=== PATIENT | female | born 1975 | race Caucasian/White ===

== ENCOUNTER 2019-12-27 10:58 | Outpatient (REF) | payer OTHER, SELFPAY ==
--- NOTE | 2019-12-27 11:10 | MR_ITS ---
EXAMINATION: MR BREAST WITHOUT AND WITH CONTRAST, BILATERAL CLINICAL INFORMATION: Follow-up left breast nodular enhancement, central region. High-risk screening. COMPARISON: Breast MRI 01/11/2019, 11/27/2017 TECHNIQUE: Imaging was performed with a dedicated breast coil. Prior to the administration of contrast, bilateral axial T1 and bilateral axial T2 weighted sequences were obtained. After the uneventful administration of?7 mL of Gadavist, dynamic contrast-enhanced VIBRANT series through the breasts in the axial plane were performed. Subtracted images were performed and reviewed. A delayed sagittal sequence through both breasts was acquired. Additionally, CAD post-processing, including maximum intensity projections, 3-D reconstructions and kinetic analysis, were performed an independent workstation and reviewed by the interpreting radiologist is a portion of this exam. FINDINGS: The patient's fibroglandular tissue demonstrates moderate background enhancement. LEFT BREAST: The previously identified [id number] enhancement in the central region of the left breast is less conspicuous on today's examination. No suspicious masslike or non-masslike enhancement. No abnormal skin thickening or nipple retraction. No abnormal architectural distortion. Review of the T2 weighted images demonstrates no fibrocystic changes or dilated ducts. Review of kinetic images reveals no additional findings. RIGHT BREAST: There is a new area of irregular somewhat mass-like enhancement located at 8 o'clock, 7.4 cm from the nipple measuring 1.4 cm in size (image 81, series 105). This area demonstrates progressive or type I enhancement and appears asymmetric. No mammogram for comparison from 2020. Recommend formal diagnostic mammogram and ultrasound for further evaluation. No other definite suspicious ajl-[id number]-wewd or mass-like enhancement within the right breast within the limits of the examination. No additional findings on review of the T2-weighted images. There is no suspicious internal mammary chain or axillary adenopathy. Limited views of the chest and abdomen are unremarkable. MR/MR breast BI wo/w con IMPRESSION: 1. New indeterminant mass-like enhancement right breast, 8 o'clock. No MR specific evidence of left breast malignancy. ASSESSMENT: LEFT BREAST: BI-RADS 1-Negative RIGHT BREAST: BI-RADS 4 - Suspicious abnormality - Biopsy should be considered. RECOMMENDATIONS: Recommend bilateral diagnostic mammogram with right breast diagnostic ultrasound. This area cannot be identified for biopsy under either modality. MRI-guided biopsy will be required for a definitive evaluation. Recommendations called to Flores Liu Bath Mix Operator @ 110 pm on 12/29/2019.
== END 2019-12-27 10:59 | disposition home or self-care (01) ==
LOC: HO.MRI 10:58
PROVIDERS: PCP Internal Medicine; Visit Provider Surgery
DX: R92.8 Other abnormal and inconclusive findings on diagnostic imaging of breast (principal); Z91.89 Other specified personal risk factors, not elsewhere classified; Z80.3 Family history of malignant neoplasm of breast
CPT/HCPCS: 77049; A9585

== ENCOUNTER 2020-01-12 10:50 | Outpatient (REF) | payer OTHER, SELFPAY ==
--- NOTE | 2020-01-12 10:58 | MM_ITS ---
EXAMINATION: MM DIAGNOSTIC DIGITAL BREAST TOMOSYNTHESIS, BILATERAL US DIAGNOSTIC ULTRASOUND BREAST, RIGHT CLINICAL INFORMATION: High risk screening MRI demonstrates new indeterminate masslike enhancement posterior lateral right breast. History reduction mammoplasty March 2018. The lifetime risk of breast cancer based on the Tyrer-Cuzick Model is 26%. COMPARISON: MRI breasts 12/27/2019, 01/11/2019, 11/27/2017; Mammography: 02/11/2019, 10/15/2017, 09/30/2016, 02/11/2019 TECHNIQUE: Digital breast tomosynthesis is performed in both the craniocaudal and mediolateral oblique views along with computer-aided detection (CAD). Synthesized 2D images are generated from the tomosynthesis. Additional exaggerated right CC view is provided. Ultrasound right breast is targeted to the outer quadrants. Grayscale imaging and color Doppler are performed without and with harmonics. FINDINGS: There are scattered areas of fibroglandular density (ACR BI-RADS breast composition Category b). Parenchymal pattern is similar to prior studies. There is no developing density or interval mass or architectural abnormality. No abnormal calcifications. There is biopsy clip marker again noted posterior upper outer left breast. There is no mammographic correlate for the finding on recent breast MRI. Ultrasound right breast demonstrates no cystic or solid mass, architectural abnormality or focal duct ectasia. There is no ultrasound correlate for finding on recent breast MRI. Results are discussed with the patient at time of visit. There is no imaging correlate for finding on recent breast MRI. MR guided biopsy would be necessary for tissue sampling. The Patient notes she has upcoming appointment with Dr. Tapia and will discuss management options. Results called to medical records specialist (Flores) for Dr. Tapia on 01/12/2020. MM/MM tomosynthesis diagnostic BI IMPRESSION: 1. No mammographic evidence of malignancy. 2. Unremarkable targeted right breast ultrasound. 3. No mammographic or ultrasound correlate for finding on recent breast MRI. ASSESSMENT: BI-RADS 4: Suspicious (see recent MR breast) RECOMMENDATION: 1. The suspicious finding right breast on recent MR has no mammographic or ultrasound correlate. Tissue sampling would therefore require MR-guidance. 2. Otherwise, routine annual mammography screening and adjunct screening with MR. This patient's information was entered into a reminder system with a target due date for their next mammogram.
== END 2020-01-12 10:51 | disposition home or self-care (01) ==
LOC: HO.MAMMO 10:50
PROVIDERS: PCP Internal Medicine; Visit Provider Surgery
DX: R92.8 Other abnormal and inconclusive findings on diagnostic imaging of breast (principal); Z80.3 Family history of malignant neoplasm of breast
CPT/HCPCS: 76642; 77062; 77066

== ENCOUNTER → 2020-01-18 11:01 | Outpatient (BNVA) | payer OTHER, SELFPAY | PROVIDERS: PCP Internal Medicine; Visit Provider Surgery | DX: R92.8 Other abnormal and inconclusive findings on diagnostic imaging of breast (principal); Z80.3 Family history of malignant neoplasm of breast | CPT/HCPCS: 99212 ==

== ENCOUNTER 2020-02-01 09:01 | Outpatient (REF) | payer OTHER, SELFPAY ==
--- NOTE | 2020-02-01 09:06 | MR_ITS ---
EXAMINATION: MR GUIDED TARGETING BREAST, RIGHT CLINICAL INFORMATION: High risk screening MRI demonstrates new indeterminate masslike enhancement posterior lateral right breast. No mammographic or ultrasound correlate. History reduction mammoplasty March 2018. COMPARISON: MRI breasts without and with contrast 12/27/2019, diagnostic digital breast tomosynthesis and targeted right breast ultrasound 01/12/2020. TECHNIQUE/PROCEDURE: Informed consent was obtained from the patient after discussion of the benefits, risks, and alternatives to biopsy today. Patient appeared to understand. Gave opportunity for questions. Patient signed consent form. IV placed and MR imaging is performed with patient in 3 positions: prone, oblique, and steeper oblique. The intended target remains too far posterior from the grid position to allow for sampling. The procedure was aborted. Patient did not receive gadolinium contrast. No biopsy performed. Results discussed with patient and called to medical assisting program director (Kizzy) for Dr. Tapia on 02/01/2020. Tissue sample under MR guidance may be possible at an outside facility that has a different breast grid coil arrangement. If tissue sampling is not performed, then follow up MR breasts in 6-12 months would be recommended. MR/MR guided breast biopsy RT IMPRESSION: 1. Procedure aborted as the target is not accessible with MR coil-grid arrangement. 2. Tissue sample under MR guidance may be possible at an outside facility with a different breast grid coil arrangement. If tissue sampling is not performed, then follow up MR breasts in 6-12 months would be recommended.
== END 2020-02-01 09:02 | disposition home or self-care (01) ==
LOC: HO.MRI 09:01
PROVIDERS: Visit Provider Surgery
DX: R92.8 Other abnormal and inconclusive findings on diagnostic imaging of breast (principal); Z80.3 Family history of malignant neoplasm of breast
CPT/HCPCS: 19085; A9585

== ENCOUNTER → 2020-04-21 09:47 | Outpatient (BNVA) | payer OTHER, SELFPAY | PROVIDERS: PCP Internal Medicine; Visit Provider Surgery | DX: R92.8 Other abnormal and inconclusive findings on diagnostic imaging of breast (principal); Z80.3 Family history of malignant neoplasm of breast | CPT/HCPCS: 99212 ==

== ENCOUNTER → 2020-08-25 09:36 | Outpatient (BNVA) | payer OTHER, SELFPAY | PROVIDERS: PCP Internal Medicine; Referring Provider Internal Medicine; Visit Provider Surgery | DX: Z80.3 Family history of malignant neoplasm of breast (principal) | CPT/HCPCS: 99212 ==

== ENCOUNTER 2021-01-02 08:32 | Outpatient (REF) | payer OTHER, SELFPAY ==
--- NOTE | ~2021-01-02 | MM_ITS ---
EXAMINATION: MM DIAGNOSTIC DIGITAL BREAST TOMOSYNTHESIS, BILATERAL CLINICAL INFORMATION: Due for yearly. History reduction mammoplasty March 2018. History benign left breast biopsy 2015. Anticipated MR biopsy right breast 02/01/2020 not performed due to location of target beyond sampling grid. Patient notes unremarkable follow up MRI at outside facility performed on 08/09/2020. The lifetime risk of breast cancer based on the Tyrer-Cuzick Model is 20%. COMPARISON: Mammography: 01/12/2020, 02/11/2019, 10/15/2017; MRI breasts 12/27/2019, MR guided targeting breast 02/01/2020, outside breast MRI report is [id number] ([facility]). TECHNIQUE: Digital breast tomosynthesis is performed in both the craniocaudal and mediolateral oblique views along with computer-aided detection (CAD). Synthesized 2D images are generated from the tomosynthesis. Additional views are obtained: Exaggerated right CC, magnification right CC, magnification right ML x2. FINDINGS: There are scattered areas of fibroglandular density (ACR BI-RADS breast composition Category b). There is no developing density or interval mass or architectural abnormality. Parenchymal pattern is similar to prior study. There is biopsy clip marker again noted posterior upper left breast. There are some benign calcifications anterior right breast consistent with the reduction mammoplasty. The axilla and skin contours are unremarkable. Results are discussed with the patient at time of visit. MM/MM tomosynthesis diagnostic BI IMPRESSION: No mammographic evidence of malignancy. ASSESSMENT: BI-RADS 2: Benign RECOMMENDATION: 1. Routine annual mammography screening. 2. Additional adjunct screening breast MRI as clinical risk factors warrant. This patient's information was entered into a reminder system with a target due date for their next mammogram.
== END 2021-01-02 08:33 | disposition home or self-care (01) ==
LOC: HO.MAMMO 08:32
PROVIDERS: Visit Provider Internal Medicine
DX: R92.2 Inconclusive mammogram (principal); Z80.3 Family history of malignant neoplasm of breast
CPT/HCPCS: 77062; 77066

== ENCOUNTER → 2021-02-22 09:44 | Outpatient (BNVA) | payer OTHER, SELFPAY | PROVIDERS: PCP Internal Medicine; Referring Provider Internal Medicine; Visit Provider Surgery | DX: R92.8 Other abnormal and inconclusive findings on diagnostic imaging of breast (principal); Z80.3 Family history of malignant neoplasm of breast | CPT/HCPCS: 99212 ==

== ENCOUNTER → 2021-08-23 09:44 | Outpatient (BNVA) | payer OTHER, SELFPAY | PROVIDERS: PCP Internal Medicine; Visit Provider Surgery | DX: R92.8 Other abnormal and inconclusive findings on diagnostic imaging of breast (principal); Z80.3 Family history of malignant neoplasm of breast | CPT/HCPCS: 99212 ==

== ENCOUNTER 2022-01-07 09:36 | Outpatient (REF) | payer OTHER, SELFPAY ==
--- NOTE | ~2022-01-07 | MM_ITS ---
EXAMINATION: MM SCREENING DIGITAL BREAST TOMOSYNTHESIS, BILATERAL CLINICAL INFORMATION: Screening. Asymptomatic. The lifetime risk of breast cancer based on the Tyrer-Cuzick Model is 20%. COMPARISON: Mammography: 01/02/2021, 01/12/2020, 02/11/2019 TECHNIQUE: Digital breast tomosynthesis is performed in both the craniocaudal and mediolateral oblique views along with computer-aided detection (CAD). Synthesized 2D images are generated from the tomosynthesis. Additional left MLO and right cleavage view are provided. FINDINGS: There are scattered areas of fibroglandular density (ACR BI-RADS breast composition Category b). There are no significant masses, abnormal calcifications, or other abnormalities. Parenchymal pattern is similar to prior studies. There is no developing density or architectural abnormality. Biopsy clip marker again noted posterior upper left breast. The axilla are unremarkable. No significant changes. MM/MM tomosynthesis screening BI IMPRESSION: No mammographic evidence of malignancy. ASSESSMENT: BI-RADS 1: Negative RECOMMENDATION: Routine annual mammography screening. This patient's information was entered into a reminder system with a target due date for their next mammogram.
== END 2022-01-07 09:37 | disposition home or self-care (01) ==
LOC: HO.MAMMO 09:36
PROVIDERS: PCP Internal Medicine; Visit Provider Internal Medicine
DX: Z12.31 Encounter for screening mammogram for malignant neoplasm of breast (principal)
CPT/HCPCS: 77063; 77067

== ENCOUNTER → 2022-02-26 08:41 | Outpatient (BNVA) | payer OTHER, SELFPAY | PROVIDERS: PCP Internal Medicine; Referring Provider Internal Medicine; Visit Provider Surgery | DX: R92.8 Other abnormal and inconclusive findings on diagnostic imaging of breast (principal); Z91.89 Other specified personal risk factors, not elsewhere classified; Z80.3 Family history of malignant neoplasm of breast | CPT/HCPCS: 99212 ==

== ENCOUNTER 2022-09-13 10:04 | Outpatient (AMB) | payer OTHER, SELFPAY ==
--- NOTE | 2022-09-13 10:07 | A.OFFVIS_ITS ---
Intake Vital Signs 09/13/22 10:13 Height 5 ft 8 in Weight 145 lb 6 oz BMI 22.1 BP 128/78 Blood Pressure Location Lt brachial Position Sitting Pulse 86 Intake Visit Reasons: 6 mth breast exam and MRI results Intake Note: Patient is seen in office for 6 month follow up visit, breast exam and MRI results. 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 Kearns and Dr. Tapia returning for a high risk breast cancer examination. She has a strong family history of breast cancer including her maternal grandmother diagnosed at the age of 63, a maternal great grandmother with breast cancer as well as 2 maternal aunts with breast cancer at the age of 60. Her mother was tested for BRCA and was negative. Patient's initial Tyrer-Cuzick calculation was 25% lifetime risk of breast cancer. 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 She also underwent bilateral breast reduction by Dr. Nina Mandujano March 2018. This was complicated by hy pertrophic scarring in the right breast which has subsequently resolved. The patient underwent a breast MRI on 12/27/2019 which demonstrated a new area of irregular masslike enhancement along the 8 o'clock position, 7.4 cm from the nipple, 1.4 cm in size. Attempted biopsy was performed on 02/01/2020 however was unsuccessful as the target was not accessible with the MR coil great arrangement. A six-month follow-up MRI was obtained on 08/09/2020 at [facility]. This revealed no further suspicious findings in either breast (BI-RADS 2 bilaterally). Her most recent mammogram of 01/07/2022 reveals no suspicious findings in either breast (BI-RADS 2). Tyrer-Cuzick lifetime remaining risk of breast cancer is 20%. Her most recent MRI of 09/06/2022 revealed no MR specific suspicious findings (BI-RADS 2). She feels well and denies any new breast symptoms. [facility] [place] Medical History Family history of breast cancer Surgical History History of bilateral breast reduction surgery (03/30/18) History of cervical polypectomy History of hemorrhoidectomy History of left breast biopsy (09/2015) Family History Mother History of multiple myeloma History of colon polyps Paternal Grandfather History of stomach cancer Maternal Grandmother History of breast cancer, Onset Age: 55 Maternal Aunt History of breast cancer, Onset Age: 60 Social History Alcohol intake: current Alcohol intake frequency: holidays/special occasions only Review of Systems Const All systems reviewed & are unremarkable except as noted in HPI and below Denies nipple discharge Skin/Breast Denies breast swelling, Denies breast skin changes, Reports breast pain, Denies breast mass, Denies change in breast shape and Denies nipple discharge Jorge/Lymph Denies lymphadenopathy Physical Exam Const General: cooperative, healthy appearing, comfortable, no acute distress, well developed, alert and awake Chest Other: Bilateral breast reduction surgery with typical keyhole incision. Left breast: No skin change, no nipple retraction, no nipple discharge, no palpable mass, no enlarged lymph nodes. Right breast: No skin change, no nipple retraction, no nipple discharge, no palpable mass, no enlarged lymph nodes Resp Effort & Inspection: normal respiratory effort Skin General skin exam: no rashes or lesions noted Extrem General: Yes no clubbing, cyanosis or edema Assessment & Plan Assessment & Plan (1) At high risk for breast cancer: Code(s): Z91.89 - Other specified personal risk factors, not elsewhere classified (2) Family history of breast cancer: Comment: Examination findings are benign and stable except for the presence of mild tenderness in the lower outer quadrant of the right breast Code(s): Z80.3 - Family history of malignant neoplasm of breast (3) Abnormal MRI, breast: Code(s): R92.8 - Other abnormal and inconclusive findings on diagnostic imaging of breast Plan 47-year-old female patient returning for a six-month follow-up breast examinat ion. Examination today reveals no suspicious findings in either breast. She underwent breast MRI on 09/06/2022 which revealed no MR specific suspicious findings in either breast (BI-RADS 2). Her most recent mammogram of 01/07/2022 reveals no suspicious findings and no mammographic evidence of malignancy. (BI- RADS 2: Benign). She will be due for her next mammogram in 01/11/2023. I recommended follow-up examination in 6 months. She is welcome to call sooner for any new concerns. Coding Level of Care Code Est Pt Level 3 (95879) Diagnoses At high risk for breast cancer Z91.89 Family history of breast cancer Z80.3 Abnormal MRI, breast R92.8
[2022-09-13 10:13] VITALS: BP 128/78; PULSE 86; BMI 22.1
== END 2022-09-13 10:26 | disposition home or self-care (01) ==
PROVIDERS: PCP Internal Medicine; Visit Provider Surgery
DX: Z91.89 Other specified personal risk factors, not elsewhere classified (principal); Z80.3 Family history of malignant neoplasm of breast; R92.8 Other abnormal and inconclusive findings on diagnostic imaging of breast
CPT/HCPCS: 99213

== ENCOUNTER → 2022-09-13 10:04 | Outpatient (BNVA) | payer OTHER, SELFPAY | PROVIDERS: PCP Internal Medicine; Visit Provider Surgery | DX: R92.8 Other abnormal and inconclusive findings on diagnostic imaging of breast (principal); D24.9 Benign neoplasm of unspecified breast; Z91.89 Other specified personal risk factors, not elsewhere classified; Z80.3 Family history of malignant neoplasm of breast; Z42.8 Encounter for other plastic and reconstructive surgery following medical procedure or healed injury | CPT/HCPCS: 99212 ==

== ENCOUNTER 2023-01-08 09:54 | Outpatient (REF) | payer OTHER, SELFPAY ==
--- NOTE | ~2023-01-08 | MM_ITS ---
EXAMINATION: MM SCREENING DIGITAL BREAST TOMOSYNTHESIS, BILATERAL CLINICAL INFORMATION: Screening. Asymptomatic. The patient is status post bilateral breast reduction. COMPARISON: Mammography: This study is compared with prior exams dating back to 2018. TECHNIQUE: Digital breast tomosynthesis is performed in both the craniocaudal and mediolateral oblique views along with computer-aided detection (CAD). Synthesized 2D images are generated from the tomosynthesis. FINDINGS: There are scattered areas of fibroglandular density (ACR BI-RADS breast composition Category b). There are no significant masses, abnormal calcifications, or other abnormalities. There is a biopsy tissue marker present in the superior aspect of the left breast. MM/MM tomosynthesis screening BI IMPRESSION: No mammographic evidence of malignancy. ASSESSMENT: BI-RADS BI-RADS 2 - Benign Findings RECOMMENDATION: Routine annual mammography screening. 1 year F/U This examination should not preclude the clinical evaluation of a suspicious palpable abnormality. This patient's information was entered into a reminder system with a target due date for their next mammogram.
== END 2023-01-08 09:55 | disposition home or self-care (01) ==
LOC: HO.MAMMO 09:54
PROVIDERS: PCP Internal Medicine; Visit Provider Internal Medicine
DX: Z12.31 Encounter for screening mammogram for malignant neoplasm of breast (principal)
CPT/HCPCS: 77063; 77067

== ENCOUNTER → 2023-01-08 10:15 | Outpatient (BNV) | payer OTHER, SELFPAY | PROVIDERS: PCP Internal Medicine; Visit Provider Radiology Diagnostic Radiology | DX: Z12.31 Encounter for screening mammogram for malignant neoplasm of breast (principal) | CPT/HCPCS: 77063; 77067 ==

== ENCOUNTER 2023-03-18 08:50 | Outpatient (AMB) | payer OTHER, SELFPAY ==
--- NOTE | 2023-03-18 08:52 | A.OFFVIS_ITS ---
Intake Vital Signs 03/18/23 09:04 Height 5 ft 8 in Weight 146 lb 4 oz BMI 22.2 BP 116/64 Blood Pressure Location Lt brachial Position Sitting Pulse 86 Pulse Source Pulse Oximeter Intake Visit Reasons: 6 mth breast exam Intake Note: Patient is seen in office for 6 month follow up visit, breast exam. 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 Accompanied by: Self / Same As Patient Allergies amlodipine [Norvasc] Allergy (Unknown, Verified 03/18/23 09:03) nausea and vomiting moxifloxacin [Avelox] Allergy (Unknown, Verified 03/18/23 09:03) shortness of breath Sulfa (Sulfonamide Antibiotics) Allergy (Unknown, Verified 03/18/23 09:03) hives Medication List - Last Reconciled 03/18/23 by Manuel Leach MD fluoride (sodium) 1.1% dental DIRECTED mometasone 50 mcg/actuation 2 sprays intranasal DAILY rimegepant (Nurtec ODT) 75 mg PO Q OTHER DAY HPI HPI Comments History of Present Illness Details 47-year-old female patient, former patie nt of Dr. Kearns and Dr. Tapia returning for a high risk breast cancer examination. She has a strong family history of breast cancer including her maternal grandmother diagnosed at the age of 63, a maternal great grandmother with breast cancer as well as 2 mate rnal aunts with breast cancer at the age of 60. Her mother was tested for BRCA and was negative. Patient's initial Tyrer-Cuzick calculation was 25% lifetime risk of breast cancer. 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 She also underwent bilateral breast reduction by Dr. Nina Mandujano March 2018. This was complicated by hypertrophic scarring in the right breast which has subsequently resolved. The patient underwent a breast MRI on 12/27/2019 which demonstrated a new area of irregular masslike enhancement along the 8 o'clock position, 7.4 cm from the nipple, 1.4 cm in size. Attempted biopsy was performed on 02/01/2020 however was unsuccessful as the target was not accessible with the MR coil great arrangement. A six-month follow-up MRI was obtained on 08/09/2020 at [facility]. This revealed no further suspicious findings in either breast (BI-RADS 2 bilaterally). Her most recent mammogram of 01/08/2023 revealed no mammograph ic evidence of malignancy (BI-RADS 2). Her most recent MRI of 09/06/2022 revealed no MR specific suspicious findings (BI-RADS 2). She feels well and denies any new breast symptoms. [facility] Medical History Family history of breast cancer Surgical History History of bilateral breast reduction surgery (03/30/18) History of left breast biopsy (09/2015) History of cervical polypectomy History of hemorrhoidectomy Family History Mother History of multiple myeloma History of colon polyps Paternal Grandfather History of stomach cancer Maternal Grandmother History of breast cancer, Onset Age: 55 Maternal Aunt History of breast cancer, Onset Age: 60 Social History Alcohol intake: current Alcohol intake frequency: holidays/special occasions only Review of Systems Const All systems reviewed & are unremarkable except as noted in HPI and below Denies nipple discharge Skin/Breast Denies breast swelling, Denies breast skin changes, Reports breast pain, Denies breast mass, Denies change in breast shape and Denies nipple discharge Jorge/Lymph Denies lymphadenopathy Physical Exam Vital Signs: Last Vital Signs Pulse 86 03/18/23 09:04 BP 116/64 03/18/23 09:04 BMI result Body Mass Index 22.2 Const General: no acute distress Nutritional Appearance: well nourished Orientation/consciousness: patient oriented x3 Limitations: no limitations Chest Other: Bilateral breast reduction surgery with typical keyhole incision. Left breast: No skin change, no nipple retraction, no nipple discharge, no palpable mass, no enlarged lymph nodes. Right breast: No skin change, no nipple retraction, no nipple discharge, no palpable mass, no enlarged lymph nodes Resp Effort & Inspection: normal respiratory effort Skin General skin exam: no rashes or lesions noted Neuro General: patient oriented x3 Extrem General: Yes no clubbing, cyanosis or edema Assessment & Plan Assessment & Plan (1) At high risk for breast cancer: Code(s): Z91.89 - Other specified personal risk factors, not elsewhere classified (2) Family history of breast cancer: Comment: Examination findings are benign and stable except for the presence of mild tenderness in the lower outer quadrant of the right breast Code(s): Z80.3 - Family history of malignant neoplasm of breast (3) Abnormal MRI, breast: Code(s): R92.8 - Other abnormal and inconclusive findings on diagnostic imaging of breast Plan 47-year-old female patient returning for a six-month follow-up breast examination. Examination today reveals no suspicious findings in either breast. She underwent breast MRI on 09/06/2022 which revealed no MR specific suspicious findings in either breast (BI-RADS 2). Her most recent mammogram of 01/08/2023 reveals no suspicious findings and no mammographic evidence of malignancy (BI- RADS 2: Benign). Follow-up mammogram in 1 year is recommended. I recommended follow-up examination in 6 months. She is welcome to call sooner for any new concerns. Coding Level of Care Code Est Pt Level 3 (43108) Diagnoses At high risk for breast cancer Z91.89 Family history of breast cancer Z80.3 Abnormal MRI, breast R92.8
[2023-03-18 09:04] VITALS: BP 116/64; PULSE 86; BMI 22.2
== END 2023-03-18 09:13 | disposition home or self-care (01) ==
PROVIDERS: PCP Internal Medicine; Visit Provider Surgery
DX: R92.8 Other abnormal and inconclusive findings on diagnostic imaging of breast (principal); Z80.3 Family history of malignant neoplasm of breast; Z91.89 Other specified personal risk factors, not elsewhere classified
CPT/HCPCS: 99213

== ENCOUNTER → 2023-03-18 08:50 | Outpatient (BNVA) | payer OTHER, SELFPAY | PROVIDERS: PCP Internal Medicine; Visit Provider Surgery | DX: R92.8 Other abnormal and inconclusive findings on diagnostic imaging of breast (principal); Z91.89 Other specified personal risk factors, not elsewhere classified; Z80.3 Family history of malignant neoplasm of breast | CPT/HCPCS: 99212 ==

== ENCOUNTER 2023-09-16 09:20 | Outpatient (AMB) | payer OTHER, SELFPAY ==
--- NOTE | 2023-09-16 09:39 | A.OFFVIS_ITS ---
Vital Signs 09/16/23 09:40 Height 5 ft 8 in Weight 149 lb 14.629 oz BMI 22.8 BP 120/60 Blood Pressure Location Lt brachial Position Sitting Pulse 81 Intake Visit Reasons: 6 mth breast exam Intake Note: Marlene presents in the office as a 6 month breast exam. CC: She states that last week she had an MRI at [place] of her breast. Allergies amlodipine [Norvasc] Allergy (Unknown, Verified 09/16/23 09:42) nausea and vomiting moxifloxacin [Avelox] Allergy (Unknown, Verified 09/16/23 09:42) shortness of breath Sulfa (Sulfonamide Antibiotics) Allergy (Unknown, Verified 09/16/23 09:42) hives Medication List - Last Reconciled 09/16/23 by Manuel Leach MD fluoride (sodium) 1.1% dental DIRECTED mometasone 50 mcg/actuation 2 sprays intranasal DAILY omeprazole 20 mg PO DAILY rimegepant (Nurtec ODT) 75 mg PO Q OTHER DAY HPI Comments Details: 48-year-old female patient, former patient of Dr. Kearns and Dr. Tapia returning for a high risk breast cancer examination. She has a strong family history of breast cancer including her maternal grandmother diagnosed at the age of 63, a maternal great grandmother with breast cancer as well as 2 maternal aunts with breast cancer at the age of 60. Her mother was tested for BRCA and was negative. Patient's initial Tyrer-Cuzick calculation was 25% lifetime risk of breast cancer. 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 She also underwent bilateral breast reduction by Dr. Nina Mandujano March 2018. This was complicated by hypertrophic scarring in the right breast which has subsequently resolved. The patient underwent a breast MRI on 12/27/2019 which demonstrated a new area of irregular masslike enhancement along the 8 o'clock position, 7.4 cm from the nipple, 1.4 cm in size. Attempted biopsy was performed on 02/01/2020 however was unsuccessful as the target was not accessible with the MR coil great arrangement. A six-month follow-up MRI was obtained on 08/09/2020 at [facility] revealed no further suspicious findings in either breast (BI-RADS 2 bilaterally). Her most recent mammogram of 01/08/2023 revealed no mammographic evidence of malignancy (BI-RADS 2). Her most recent MRI of 09/09/2023 revealed no MR specific suspicious findings (BI-RADS 1). She feels well and denies any new breast symptoms. [facility] Medical History Family history of breast cancer Surgical History History of hysterectomy History of bilateral breast reduction surgery (03/30/18) History of left breast biopsy (09/2015) History of cervical polypectomy History of hemorrhoidectomy Family History Mother History of multiple myeloma History of colon polyps Paternal Grandfather History of stomach cancer Maternal Grandmother History of breast cancer, Onset Age: 55 Maternal Aunt History of breast cancer, Onset Age: 60 Social History Alcohol intake: current Alcohol intake frequency: holidays/special occasions only Review of Systems Const All systems reviewed & are unremarkable except as noted in HPI and below Physical Exam Vital Signs: Last Vital Signs Pulse 81 09/16/23 09:40 BP 120/60 09/16/23 09:40 BMI result Body Mass Index 22.8 Const General: no acute distress Nutritional Appearance: well nourished Orientation/consciousness: patient oriented x3 Limitations: no limitations Chest Other: Bilateral breast reduction surgery with typical keyhole incision. Left breast: No skin change, no nipple retraction, no nipple discharge, no palpable mass, no enlarged lymph nodes. Right breast: No skin change, no nipple retraction, no nipple discharge, no palpable mass, no enlarged lymph nodes Resp Effort & Inspection: normal respiratory effort Skin General skin exam: no rashes or lesions noted Neuro General: patient oriented x3 Extrem General: Yes no clubbing, cyanosis or edema Assessment & Plan Assessment & Plan (1) At high risk for breast cancer: Code(s): Z91.89 - Other specified personal risk factors, not elsewhere classified Category: Medical (2) Family history of breast cancer: Comment: Examination findings are benign and stable except for the presence of mild tenderness in the lower outer quadrant of the right breast Code(s): Z80.3 - Family history of malignant neoplasm of breast Category: Medical (3) Abnormal MRI, breast: Code(s): R92.8 - Other abnormal and inconclusive findings on diagnostic imaging of breast Category: Medical Plan 48-year-old female patient returning for a six-month follow-up breast examination. Examination today reveals no suspicious findings in either breast. She will continue with her annual mammogram alternating with annual breast MRI. Her most recent MRI performed on 08/13/2023 revealed no MR specific evidence of malignancy in either breast (BI-RADS 1). She is scheduled for a mammogram on 01/14/2024. I recommended follow-up examination in 6 months, sooner p.r.n.. Coding Level of Care Code Est Pt Level 3 (86355) Diagnoses At high risk for breast cancer Z91.89 Family history of breast cancer Z80.3 Abnormal MRI, breast R92.8
[2023-09-16 09:40] VITALS: BP 120/60; PULSE 81; BMI 22.8
== END 2023-09-16 10:02 | disposition home or self-care (01) ==
PROVIDERS: PCP Internal Medicine; Visit Provider Surgery
DX: R92.8 Other abnormal and inconclusive findings on diagnostic imaging of breast (principal); Z80.3 Family history of malignant neoplasm of breast; Z91.89 Other specified personal risk factors, not elsewhere classified
CPT/HCPCS: 99213

== ENCOUNTER → 2023-09-16 09:20 | Outpatient (BNVA) | payer OTHER, SELFPAY | PROVIDERS: PCP Internal Medicine; Visit Provider Surgery | DX: R92.8 Other abnormal and inconclusive findings on diagnostic imaging of breast (principal); Z91.89 Other specified personal risk factors, not elsewhere classified; Z80.3 Family history of malignant neoplasm of breast | CPT/HCPCS: 99212 ==

== ENCOUNTER 2024-01-14 09:56 | Outpatient (REF) | payer OTHER, SELFPAY ==
--- NOTE | ~2024-01-14 | MM_ITS ---
EXAMINATION: MM SCREENING DIGITAL BREAST TOMOSYNTHESIS, BILATERAL CLINICAL INFORMATION: Screening. Asymptomatic. COMPARISON: Mammography: Comparison is made with available priors TECHNIQUE: Digital breast mammography with tomosynthesis is performed in both the craniocaudal and mediolateral oblique views along with computer-aided detection (CAD). FINDINGS: There are scattered areas of fibroglandular density (ACR BI-RADS breast composition Category b). Left breast marker clip. There are no significant masses, abnormal calcifications, or other abnormalities. MM/MM tomosynthesis screening BI IMPRESSION: No mammographic evidence of malignancy. ASSESSMENT: BI-RADS BI-RADS 2 - Benign Findings RECOMMENDATION: Routine annual mammography screening. 1 year F/U This examination should not preclude the clinical evaluation of a suspicious palpable abnormality. This patient's information was entered into a reminder system with a target due date for their next mammogram. Electronically signed by: Rosi Peace DO 01/23/2024 09:26 AM NABILA
== END 2024-01-14 09:57 | disposition home or self-care (01) ==
LOC: HO.MAMMO 09:56
PROVIDERS: PCP Internal Medicine; Visit Provider Internal Medicine
DX: Z12.31 Encounter for screening mammogram for malignant neoplasm of breast (principal)
CPT/HCPCS: 77063; 77067

== ENCOUNTER → 2024-01-14 10:15 | Outpatient (BNV) | payer OTHER, SELFPAY | PROVIDERS: PCP Internal Medicine; Visit Provider Internal Medicine | DX: Z12.31 Encounter for screening mammogram for malignant neoplasm of breast (principal) | CPT/HCPCS: 77063; 77067 ==

== ENCOUNTER 2024-04-16 10:26 | Outpatient (AMB) | payer OTHER, SELFPAY ==
--- NOTE | 2024-04-16 10:29 | A.OFFVIS_ITS ---
Vital Signs 04/16/24 10:34 Height 5 ft 8 in Weight 147 lb BMI 22.3 BP 147/79 H Blood Pressure Location Rt brachial Position Sitting Pulse 84 Intake Visit Reasons: 6 month breast exam Intake Note: Patient is seen in office for 6 month follow up, breast exam. Pt c/o: no concerns. Reports no changes in medical hx since nelsy. mm:01/14/24 MRI:09/09/23 Quality Lab Technician Required: No Accompanied by: Self / Same As Patient Allergies amlodipine [Norvasc] Allergy (Unknown, Verified 04/16/24 10:33) nausea and vomiting moxifloxacin [Avelox] Allergy (Unknown, Verified 04/16/24 10:33) shortness of breath Sulfa (Sulfonamide Antibiotics) Allergy (Unknown, Verified 04/16/24 10:33) hives HPI Comments Details: 49-year-old female patient, former patient of Dr. Kearns and Dr. Tapia returning for a high risk breast cancer examination. She has a strong family history of breast cancer including her maternal grandmother diagnosed at the age of 63, a maternal great grandmother with breast cancer as well as 2 maternal aunts with breast cancer at the age of 60. Her mother was tested for BRCA and was negative. Patient's initial Tyrer-Cuzick calculation was 25% lifetime risk of breast cancer. 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 She also underwent bilateral breast reduction by Dr. Nina Mandujano March 2018. This was complicated by hypertrophic scarring in the right breast which has subsequently resolved. The patient underwent a breast MRI on 12/27/2019 which demonstrated a new area of irregular masslike enhancement along the 8 o'clock position, 7.4 cm from the nipple, 1.4 cm in size. Attempted biopsy was performed on 02/01/2020 however was unsuccessful as the target was not accessible with the MR coil great arrangement. A six-month follow-up MRI was obtained on 08/09/2020 at [facility] revealed no further suspicious findings in either breast (BI-RADS 2 bilaterally). Her most recent mammogram of 01/14/2024 revealed no mammographic evidence of malignancy (BI-RADS 2). Her most recent MRI of 09/09/2023 revealed no MR specific suspicious findings (BI-RADS 1). She feels well and denies any new breast symptoms. [facility] Medical History Family history of breast cancer Surgical History History of hysterectomy History of bilateral breast reduction surgery (03/30/18) History of left breast biopsy (09/2015) History of cervical polypectomy History of hemorrhoidectomy Family History Mother History of multiple myeloma History of colon polyps Paternal Grandfather History of stomach cancer Maternal Grandmother History of breast cancer, Onset Age: 55 Maternal Aunt History of breast cancer, Onset Age: 60 Social History Alcohol intake: current Alcohol intake frequency: holidays/special occasions only Review of Systems Const All systems reviewed & are unremarkable except as noted in HPI and below Physical Exam Vital Signs: Last Vital Signs Pulse 84 04/16/24 10:34 BP 147/79 H 04/16/24 10:34 BMI result Body Mass Index 22.3 Const General: no acute distress Nutritional Appearance: well nourished Orientation/consciousness: patient oriented x3 Limitations: no limitations Chest Other: Bilateral breast reduction surgery with typical keyhole incision. Left breast: No skin change, no nipple retraction, no nipple discharge, no palpable mass, no enlarged lymph nodes. Right breast: No skin change, no nipple retraction, no nipple discharge, no palpable mass, no enlarged lymph nodes Resp Effort & Inspection: normal respiratory effort Skin General skin exam: no rashes or lesions noted Neuro General: patient oriented x3 Extrem General: Yes no clubbing, cyanosis or edema Assessment & Plan Assessment & Plan (1) At high risk for breast cancer: Code(s): Z91.89 - Other specified personal risk factors, not elsewhere classified Category: Medical (2) Family history of breast cancer: Comment: Examination findings are benign and stable except for the presence of mild tenderness in the lower outer quadrant of the right breast Code(s): Z80.3 - Family history of malignant neoplasm of breast Category: Medical (3) Abnormal MRI, breast: Code(s): R92.8 - Other abnormal and inconclusive findings on diagnostic imaging of breast Category: Medical Plan 49-year-old female patient returning for a six-month follow-up breast examination. Examination today reveals no suspicious findings in either breast. She will continue with her annual mammogram alternating with annual breast M RI. Her most recent MRI performed on 09/09/2023 revealed no MR specific evidence of malignancy in either breast (BI-RADS 1) and mammogram dated 01/14/2024 revealed no mammographic evidence of malignancy either breast (BI-RADS 2). I recommended six-month follow-up breast examination, sooner p.r.n.. Coding Level of Care Code Est Pt Level 3 (33285) Complex EM visit Add On G2211 Diagnoses At high risk for breast cancer Z91.89 Family history of breast cancer Z80.3 Abnormal MRI, breast R92.8
[2024-04-16 10:34] VITALS: BP 147/79; PULSE 84; BMI 22.3
--- OUTSIDE RECORDS SUMMARY | 2024-04-16 11:46 | XMS_ITS | Clinical Summary ---
Author Organization [facility] Address [address] [place] [address] Care Team Providers Care Loan Counselor Name Role Phone Naty Tapia MD Primary Care Provider [phone] Social History Tobacco Use Types Packs/Day Years Used Date Smoking Tobacco: Never Assessed Sex and Gender Information Value Date Recorded Sex Assigned at Not on file Gender Identity Not on file Sexual Orientation Not on file Plan of Treatment Health Maintenance Due Date Last Done Comments Hepatitis C Virus Screening 1973 HIV Screening 1986 DTaP/Tdap/Td Vaccines (1 - Tdap) 1992 Hepatitis B Vaccines (1 of 3 - 19+ 3-dose series) 1992 Pap Smear (Ages 21-65) 1994 Mammogram 2013 Colonoscopy 2018 Pneumococcal Vaccines 50+ (1 of 1 - PCV) 2023 Zoster (Shingles) Vaccine (1 of 2) 2023 Influenza Vaccine 09/18/2023 COVID-19 Vaccine ( - 2023-2 5 season) 2023 Pneumococcal Vaccine: Pediat nicolás (0-5 Years) and At-Risk Patients (6 to 49 Years) Aged Out No longer eligible b ased on patient's age to complete this topic Care Teams Loan Counselor Relationship Specialty Start Date End Date Naty Tapia MD [address] [place] [address] [place] [id number] PCP - General Surgery, General 02/29/20
== END 2024-04-16 10:44 | disposition home or self-care (01) ==
PROVIDERS: PCP Internal Medicine; Visit Provider Surgery
DX: Z91.89 Other specified personal risk factors, not elsewhere classified (principal); Z80.3 Family history of malignant neoplasm of breast; R92.8 Other abnormal and inconclusive findings on diagnostic imaging of breast
CPT/HCPCS: 99213; G2211

== ENCOUNTER → 2024-04-16 10:26 | Outpatient (BNVA) | payer OTHER, SELFPAY | PROVIDERS: PCP Internal Medicine; Visit Provider Surgery | DX: R92.8 Other abnormal and inconclusive findings on diagnostic imaging of breast (principal); Z91.89 Other specified personal risk factors, not elsewhere classified; Z80.3 Family history of malignant neoplasm of breast | CPT/HCPCS: 99212 ==

== ENCOUNTER 2024-10-15 09:40 | Outpatient (AMB) | payer OTHER, SELFPAY ==
--- NOTE | 2024-10-15 09:55 | MHC.OFFVIS ---
Vital Signs 10/15/24 09:58 Height 5 ft 8 in Weight 141 lb 2 oz BMI 21.5 BP 116/56 L Blood Pressure Location Lt femoral Position Sitting Pulse 77 Intake Visit Reasons: 6 month breast exam Intake Note: Patient is seen in office for 6 month follow up visit, breast exam. Pt c/o: pain above the right breast and question regarding the letter send on imaging findings (?), denies any other concerns Box Lining Machine Operator Required: No Rock Crusher Operator: Rock Crusher Operator Present Accompanied by: Self / Same As Patient Allergies amlodipine (Norvasc) Allergy (Unknown, Verified 10/15/24 09:56) nausea and vomiting moxifloxacin (Avelox) Allergy (Unknown, Verified 10/15/24 09:56) shortness of breath Sulfa (Sulfonamide Antibiotics) Allergy (Unknown, Verified 10/15/24 09:56) hives HPI Comments Details: 49-year-old female patient, former patient of Dr. Kearns and Dr. Tapia returning for a high risk breast cancer examination. She has a strong family history of breast cancer including her maternal grandmother diagnosed at the age of 63, a maternal great grandmother with breast cancer as well as 2 maternal aunts with breast cancer at the age of 60. Her mother was tested for BRCA and was negative. Patient's initial Tyrer-Cuzick calculation was 25% lifetime risk of breast cancer. 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 She also underwent bilateral breast reduction by Dr. Nina Mandujano March 2018. This was complicated by hypertrophic scarring in the right breast which has subsequently resolved. The patient underwent a breast MRI on 12/27/2019 which demonstrated a new area of irregular masslike enhancement along the 8 o'clock position, 7.4 cm from the nipple, 1.4 cm in size. Attempted biopsy was performed on 02/01/2020 however was unsuccessful as the target was not accessible with the MR coil great arrangement. A six-month follow-up MRI was obtained on 08/09/2020 at [facility] revealed no further suspicious findings in either breast (BI-RADS 2 bilaterally). Her most recent mammogram of 01/14/2024 revealed no mammographic evidence of malignancy (BI-RADS 2). Her most recent MRI of 09/20/2024 revealed no MR specific suspicious findings (BI-RADS 2). She feels well and denies any new breast symptoms. [facility] Medical History Family history of breast cancer Surgical History History of hysterectomy History of bilateral breast reduction surgery (03/30/18) History of left breast biopsy (09/2015) History of cervical polypectomy History of hemorrhoidectomy Family History Mother History of multiple myeloma History of colon polyps Paternal Grandfather History of stomach cancer Maternal Grandmother History of breast cancer, Onset Age: 55 Maternal Aunt History of breast cancer, Onset Age: 60 Social History Alcohol intake: current Alcohol intake frequency: holidays/special occasions only Review of Systems Const All systems reviewed & are unremarkable except as noted in HPI and below Physical Exam Const General: no acute distress Nutritional Appearance: well nourished Orientation/consciousness: patient oriented x3 Limitations: no limitations Chest Other: Bilateral breast reduction surgery with typical keyhole incision. Left breast: No skin change, no nipple retraction, no nipple discharge, no palpable mass, no enlarged lymph nodes. Right breast: No skin change, no nipple retraction, no nipple discharge, no palpable mass, no enlarged lymph nodes Resp Effort & Inspection: normal respiratory effort Skin General skin exam: no rashes or lesions noted Neuro Other: Mobility Assessment: 1. 3 meter assessment time (seconds): 5 2. Gait observations: Normal balance and gait General: patient oriented x3 Extrem General: Yes no clubbing, cyanosis or edema Assessment & Plan Assessment & Plan (1) At high risk for breast cancer: Code(s): Z91.89 - Other specified personal risk factors, not elsewhere classified Category: Medical (2) Family history of breast cancer: Comment: Examination findings are benign and stable except for the presence of mild tenderness in the lower outer quadrant of the right breast Code(s): Z80.3 - Family history of malignant neoplasm of breast Category: Medical (3) Abnormal MRI, breast: Code(s): R92.8 - Other abnormal and inconclusive findings on diagnostic imaging of breast Category: Medical Plan 49-year-old female patient returning for a six-month follow-up high-risk breast examination. She feels well and denies any ongoing breast symptoms. Examination today reveals no suspicious findings in either breast. Her most recent MRI performed on 09/20/2024 at [facility] revealed no MR specific evidence of malignancy in either breast (BI-RADS 2) and mammogram dated 01/14/2024 revealed no mammographic evidence of malignancy either breast (BI-RADS 2). She is scheduled for a follow-up mammogram on 01/19/2025. She should follow up in 6 months for routine breast examination. Coding Level of Care Code Est Pt Level 3 (55138) Complex EM visit Add On G2211 Diagnoses At high risk for breast cancer Z91.89 Family history of breast cancer Z80.3 Abnormal MRI, breast R92.8
[2024-10-15 09:58] VITALS: BP 116/56; PULSE 77; BMI 21.5
--- OUTSIDE RECORDS SUMMARY | 2024-10-15 10:27 | XMS_ITS | Clinical Summary ---
Author Organization [facility] Address [address] [place] [address] Care Team Providers Care Dump Operator Name Role Phone Naty Tapia MD Primary Care Provider [phone] Social History Tobacco Use Types Packs/Day Years Used Date Smoking Tobacco: Never Assessed Comments Unknown Sex and Gender Information Value Date Recorded Sex Assigned at Not on file Legal Sex Female 6:33 PM EST Gender Identity Not on file Sexual Orientation Not on file Plan of Treatment Health Maintenance Due Date Last Done Comments Hepatitis C Virus Screening 1973 HIV Screening 1986 DTaP/Tdap/Td Vaccines (1 - Tdap) 1992 Hepatitis B Vaccines (1 of 3 - 19+ 3-dose series) 03/20 Pap Smear (Ages 21-65) 1994 Mammogram 2013 Colonoscopy 2018 Pneumococcal Vaccines 50+ (1 of 1 - PCV) 2023 Zoster (Shingles) Vaccine (1 of 2) 2023 COVID-19 Vaccine (1 - 2023-25 season) 2023 Influenza Vaccine 09/17/2024 Insurance Care Teams Dump Operator Relationship Specialty Start Date End Date Naty Tapia MD [address] [place] [address] [place] [id number] PCP - General Surgery, General 02/29/20
== END 2024-10-15 10:12 | disposition home or self-care (01) ==
LOC: HO.HGS 09:41
PROVIDERS: PCP Internal Medicine; Visit Provider Surgery
DX: Z91.89 Other specified personal risk factors, not elsewhere classified (principal); Z80.3 Family history of malignant neoplasm of breast; R92.8 Other abnormal and inconclusive findings on diagnostic imaging of breast
CPT/HCPCS: 99213

== ENCOUNTER → 2024-10-15 09:40 | Outpatient (BNVA) | payer OTHER, SELFPAY | PROVIDERS: PCP Internal Medicine; Visit Provider Surgery | DX: Z91.89 Other specified personal risk factors, not elsewhere classified (principal); R92.8 Other abnormal and inconclusive findings on diagnostic imaging of breast; Z80.3 Family history of malignant neoplasm of breast | CPT/HCPCS: 99212 ==

== ENCOUNTER 2025-01-21 15:07 | Outpatient (REF) | payer OTHER, SELFPAY ==
--- NOTE | ~2025-01-21 | MM_ITS ---
EXAMINATION: MM SCREENING DIGITAL BREAST TOMOSYNTHESIS, BILATERAL CLINICAL INFORMATION: Screening. Asymptomatic. COMPARISON: Mammography: Comparison is made with available priors TECHNIQUE: Digital breast mammography with tomosynthesis is performed in both the craniocaudal and mediolateral oblique views along with computer-aided detection (CAD). FINDINGS: There are scattered areas of fibroglandular density. Left marker clip. There are no significant masses, abnormal calcifications, or other abnormalities. MM/MM tomosynthesis screening BI IMPRESSION: No mammographic evidence of malignancy. ASSESSMENT: BI-RADS Category 2: Benign RECOMMENDATION: Routine annual mammography screening. 1 year F/U This examination should not preclude the clinical evaluation of a suspicious palpable abnormality. This patient's information was entered into a reminder system with a target due date for their next mammogram. Electronically signed by: Rosi Peace DO 01/24/2025 12:59 PM N[facility]ILA
--- OUTSIDE RECORDS SUMMARY | 2025-01-21 19:09 | XMS_ITS | Clinical Summary ---
Author Organization [facility] Address [address] [place] [address] Care Team Providers Care International Flight Attendant Name Role Phone Naty Tapia MD Primary Care Provider [phone] Social History Tobacco Use Types Packs/Day Years [...] Vaccine (1 of 2) 2023 Influenza Vaccine 09/17/2024 COVID-19 Vaccine ( - 2023-25 season) 2024 RSV Vaccine 50 years and old er and Patients (1 - 1-dose 75+ series) 2048 Insurance Care Teams International Flight Attendant Relationship Specialty Start Date End Date Naty Tapia MD [address] [place] [address] [place] [address] PCP - General Surgery, General 02/29/20
== END 2025-01-21 15:08 | disposition home or self-care (01) ==
LOC: HO.MAMMO 15:07
PROVIDERS: PCP Internal Medicine; Visit Provider Internal Medicine
DX: Z12.31 Encounter for screening mammogram for malignant neoplasm of breast (principal)
CPT/HCPCS: 77063; 77067

== ENCOUNTER → 2025-01-21 15:30 | Outpatient (BNV) | payer OTHER, SELFPAY | PROVIDERS: PCP Internal Medicine; Visit Provider Internal Medicine | DX: Z12.31 Encounter for screening mammogram for malignant neoplasm of breast (principal) | CPT/HCPCS: 77063; 77067 ==